=== PATIENT | male | born 1965 | race Caucasian/White ===

== ENCOUNTER 2017-07-15 10:41 | Outpatient (CLI) | payer OTHER | END 2017-07-15 10:42 | disposition home or self-care (01) | LOC: DTY/OP 10:41 | PROVIDERS: ATTEND Specialist | DX: Z01.818 Encounter for other preprocedural examination (principal); E66.01 Morbid (severe) obesity due to excess calories | CPT/HCPCS: 97802 ==

== ENCOUNTER 2017-10-20 15:08 | Emergency (ER) | payer BC ==
[2017-10-20 17:05] LABS: Bilirubin Negative (Negative); Blood, Urine Large (Negative); Clarity CLOUDY (Clear); Glucose, Urine (Dipstick) Negative (Negative); Leukocyte Trace (Negative); Nitrite Negative (Negative); Protein, Urine (Dipstick) 100 mg/dL (Neg-Trace); Specific Gravity, Urine 1.018 (1.002-1.036); Urobilinogen 0.2 mg/dL (0.2-1.0)
[2017-10-20 17:07] LABS: Bacteria/HPF None Seen HPF (None Seen); Hyaline Casts/LPF 0-3 HYALINE CAST LPF (0-3 Hyaline); RBC/HPF GREATER THAN 50-TNTC HPF (0-3); Squamous Epithelial None Seen HPF (0-3)
== END 2017-10-20 21:36 | disposition home or self-care (01) ==
LOC: ERS 15:08
DX: R33.9 Retention of urine, unspecified (principal); R31.9 Hematuria, unspecified; R10.30 Lower abdominal pain, unspecified; E11.9 Type 2 diabetes mellitus without complications; E78.5 Hyperlipidemia, unspecified; I10 Essential (primary) hypertension; F17.220 Nicotine dependence, chewing tobacco, uncomplicated
CPT/HCPCS: 81003; 81015; 99283

== ENCOUNTER 2017-10-21 08:13 | Outpatient (CLI) | payer BC ==
--- NOTE | 2017-10-21 09:20 | CT ---
CT ABDOMEN AND PELVIS WITH AND WITHOUT IV CONTRAST: Date: 10/21/17 HISTORY: Gross hematuria. FINDINGS: Comparison made with exam of 07/15/11. There is evidence of old granulomatous disease in the lower thorax. The liver demonstrates mildly dec reased attenuation compared to the spleen consistent with mild fatty infiltration. No hepatic mass or abnormal biliary ductal dilatation is seen. The spleen, pancreas, and adrenal glands are normal. No calcified gallstones are noted. No free air, free fluid, or lymphadenopathy is seen in the abdomen or pelvis. A normal appearing appendix is noted. There are vascular calcifications without evidence of aneurysmal dilatation of the abdominal aorta. There are mild degenerative changes in the spine. The t wo nonobstructing calculi in the left kidney are again seen. No calculi seen in the right kidney, ure ter, or urinary bladder. No hydroureteronephrosis is noted on either side. There is marked enlargemen t of the prostate gland. There is thickening of the wall of the urinary bladder and free air in the u rinary bladder. There are few sigmoid diverticula. IMPRESSION: 1. Nonobstructing left renal calculi. 2. No evidence of renal mass. 3. Mild hepatic steatosis. 4. Marked prostatic enlargement. 5. Bladder wall thickening with intraluminal free air (correlate for recent instrumentation). 6. Mild sigmoid diverticulosis. 7. Urologic consultation is recommended. POS: ADOLFO
[2017-10-21] MEDS ORDERED: Iopamidol 370 76% 100 ML VIAL ONE (13:14)
== END 2017-10-21 08:14 | disposition home or self-care (01) ==
LOC: CT 08:13
PROVIDERS: ATTEND Family Medicine
DX: R31.0 Gross hematuria (principal); N20.0 Calculus of kidney; K76.0 Fatty (change of) liver, not elsewhere classified; N40.0 Benign prostatic hyperplasia without lower urinary tract symptoms; K57.30 Diverticulosis of large intestine without perforation or abscess without bleeding
CPT/HCPCS: 74178

== ENCOUNTER 2017-11-02 10:34 | Outpatient (CLI) | payer BC ==
--- NOTE | 2017-11-02 12:18 | RAD ---
KUB: History: Renal stones. FINDINGS: There are two calculi in the left kidney measuring 3 and 5 mm respectively. No calculi are seen in th e projection of the right kidney, ureters, or urinary bladder. IMPRESSION: Left renal calculi. POS: ADOLFO
== END 2017-11-02 10:35 | disposition home or self-care (01) ==
LOC: RAD 10:34
PROVIDERS: ATTEND Urology
DX: N20.0 Calculus of kidney (principal)
CPT/HCPCS: 74018

== ENCOUNTER 2017-12-02 11:27 | Outpatient (CLI) | payer BC | END 2017-12-02 11:28 | disposition home or self-care (01) | LOC: LABBT 11:27 | PROVIDERS: ATTEND Specialist | DX: Z01.818 Encounter for other preprocedural examination (principal); E66.01 Morbid (severe) obesity due to excess calories | CPT/HCPCS: 93005; 93010 ==

== ENCOUNTER 2017-12-08 06:00 | Inpatient (IN) | payer BC ==
[2017-12-02 11:49] VITALS: BMI 41.8
[2017-12-08] MEDS ORDERED: Ketorolac Tromethamine 30 MG/ML VIAL ONE (06:14)
[2017-12-08] MEDS ORDERED: Scopolamine 1.5 mg/72 hour Patch ONE (06:14)
[2017-12-08] MEDS ORDERED: Heparin 5,000 UNITS/ML VIAL ONE (06:14)
[2017-12-08] MEDS ORDERED: cefOXitin 2 GM, Syringe 1 ML in Sterile Water 10 ML SLOW IVP SCH (06:30)
[2017-12-08] MEDS ORDERED: Fentanyl 250 MCG/5 ML VIAL ONE ×2 (07:18→10:12)
[2017-12-08] MEDS ORDERED: HYDROmorphone 0.5 MG/0.5 ML SYRINGE ONE (07:18)
[2017-12-08] MEDS ORDERED: Ondansetron HCl/PF 4 MG/2 ML Vial ONE ×2 (07:19→07:51)
[2017-12-08] MEDS ORDERED: Bupivacaine/Epinephrine 0.25% 30 ML VIAL ONE (07:20)
[2017-12-08] MEDS ORDERED: Dexamethasone 20 MG/5 ML VIAL ONE (07:51)
[2017-12-08] MEDS ORDERED: Glycopyrrolate 0.2 MG/ML 5 ML SYRINGE ONE (07:51)
[2017-12-08] MEDS ORDERED: Lidocaine 1% PF 5 ML VIAL ONE (07:51)
[2017-12-08] MEDS ORDERED: PROPOFOL 200 MG/20 ML VIAL ONE (07:51)
[2017-12-08] MEDS ORDERED: ePHEDrine/0.9% NaCl/PF SYRINGE 50 mg/10 ml ONE (07:51)
[2017-12-08] MEDS ORDERED: Meperidine HCl/PF 25 MG/ML VIAL SLOW IVP PRN (08:28)
[2017-12-08] MEDS ORDERED: Ondansetron HCl/PF 4 MG/2 ML Vial IVP PRN ×2 (08:28→11:09)
[2017-12-08] MEDS ORDERED: Promethazine HCl 25 MG/ML VIAL IM PRN ×2 (08:28→11:09)
[2017-12-08] MEDS ORDERED: Promethazine HCl 25 MG/ML VIAL SLOW IVP PRN (08:28)
[2017-12-08] MEDS ORDERED: HYDROmorphone 2 MG/ML VIAL SLOW IVP PRN (08:28)
[2017-12-08] MEDS ORDERED: Dextrose 5% in Water 1,000 ML IV PRN (11:09)
[2017-12-08] MEDS ORDERED: Morphine 4 MG/ML VIAL SLOW IVP PRN (11:09)
[2017-12-08] MEDS ORDERED: Dextrose 50% Abboject 50 ML SYRINGE SLOW IVP PRN (11:09)
[2017-12-08] MEDS ORDERED: diphenhydrAMINE 50 MG/ML VIAL IVP PRN (11:09)
[2017-12-08] MEDS ORDERED: Insulin Regular 300 UNITS/3 ML VIAL SC PRN (11:09)
[2017-12-08] MEDS ORDERED: hydrALAZINE 20 MG/ML VIAL SLOW IVP PRN (11:09)
[2017-12-08] MEDS: Ketorolac Tromethamine 30 MG/ML VIAL IVP SCH ×2 (12:04→18:19)
[2017-12-08] MEDS: 1/2 NS w/KCL 20 mEq 1,000 ML IV SCH ×2 (12:04→19:49)
[2017-12-08] MEDS: Morphine 4 MG/ML VIAL SLOW IVP PRN ×4 (12:05→19:48)
[2017-12-08] MEDS ORDERED: Enoxaparin Sodium 40 MG/0.4 ML SYRINGE SC SCH (21:00)
[2017-12-09] MEDS: Ketorolac Tromethamine 30 MG/ML VIAL IVP SCH ×2 (00:23→05:14)
[2017-12-09] MEDS: 1/2 NS w/KCL 20 mEq 1,000 ML IV SCH (04:05)
[2017-12-09 04:25] LABS: #Basophils 0.1 thou/uL (0.0-0.2); #Lymphocytes 2.1 thou/uL (1.20-3.40); #Neutrophils 11.7 thou/uL (1.40-6.50); %Basophils 0.5 % (0.0-1.0); %Eosinophils 0.1 % (0.0-10.0); %Monocytes 6.9 % (0.0-10.0); %Neutrophils 78.5 % (42.0-75.0); Hemoglobin 12.4 g/dL (14.0-18.0); Mean Corpuscular HGB CONC 33.8 g/dL (32.0-36.0); Mean Corpuscular Hemoglobin 31.9 pg (27.0-31.0); Mean Corpuscular Volume 94.6 fl (80.0-94.0); Mean Platelet Volume 10.5 fL (7.4-10.4); Platelet Count 167 thou/uL (130-400); RBC Distribution Width 12.1 % (11.5-14.5); Red Blood Cell (RBC) Count 3.88 mill/uL (4.70-6.10); White Blood Cell (WBC) Count 14.9 thou/uL (4.8-10.8)
[2017-12-09 04:35] LABS: Anion Gap 11 mmol/L (10-20); BUN (Urea Nitrogen) 11 mg/dL (8.9-20.6); Calc. Creatinine Clearance 194 mL/min (70-130); Calcium 8.8 mg/dL (7.8-10.44); Carbon Dioxide 25 mmol/L (22-29); Chloride 108 mmol/L (98-107); Estimated GFR-MDRD Greater than 90; Glucose 96 mg/dL (70-105); Potassium 4.1 mmol/L (3.5-5.1); Sodium 140 mmol/L (136-145)
[2017-12-09] MEDS: Hydrocodone-Acetamin 15 ML UDCUP PO PRN ×2 (05:13→11:01)
[2017-12-09 07:54] VITALS: BP 113/65; TEMP 98.1
[2017-12-09] MEDS ORDERED: Pantoprazole 40 MG VIAL IVP SCH (09:00)
--- NOTE | 2017-12-12 10:30 | OP ---
DATE OF PROCEDURE: 12/08/2017 PREOPERATIVE DIAGNOSIS: Morbid obesity with multiple comorbidities. POSTOPERATIVE DIAGNOSIS: Morbid obesity with multiple comorbidities. PROCEDURE PERFORMED: Laparoscopic vertical sleeve gastrectomy using the ViSiGi device. SURGEON: Dr. Jose Cardoso. ANESTHESIA: General endotracheal. INDICATIONS: The patient is a 52-year-old morbidly obese white male. He has undergone preoperative evaluation and education and presents at this time for a laparoscopic sleeve gastrectomy. DESCRIPTION OF OPERATION: Informed consent was obtained. The patient was taken to the operating dee dee m where general endotracheal anesthesia obtained with the patient in supine position. Abdomen was pr epped with ChloraPrep and draped in sterile fashion. Local anesthetic was infiltrated and 5 mm supra umbilical incision was created through which a Veress needle was passed into the peritoneal cavity an d pneumoperitoneum was established using cardio dioxide up to a pressure of 15 mmHg. A 5 mm trocar p ort was passed through this same incision. Laparoscopic camera was passed through this port. Under direct vision, I placed 4 additional ports. This included two 5 mm subcostal ports bilaterally, a ri ght paramedian 12 mm port, a left paramedian 15 mm port. A 5 mm epigastric incision was created through which a Jocy retractor was passed into the abdomi nal cavity and used to retract the left lobe of the liver. Inspection within the abdomen revealed the liver had no apparent fatty liver change. The ViSiGi farheen ce was passed into the stomach and used to decompress it. Identified the pylorus and beginning 4 cm proximal to the pylorus, I dissected all omental and vascular tissue away from the greater curvature of the stomach in an ascending fashion using the LigaSure device. Short gastric vessels were divided and all posterior adhesions were mobilized as well. The left emma of the diaphragm was visualized. There was no evidence of hiatal hernia. The ViSiGi device was advanced down to the level of the pylorus and placed to suction. This nicely d efined the remainder of the stomach. The gastrectomy was then performed using a series of fires of t he Guy stapler using a green load followed by a gold load and a series of blue loads. The divisi on was carried up to the angle of [facility]. Great care was taken to avoid narrowing the incisura or the g astroesophageal junction. When the resection was complete, the staple line on the sleeve was inspect ed. There were few areas of minor oozing and these were quickly controlled with Hemoclips. The gas was insufflated through the ViSiGi device while irrigating the staple line. There was no evidence of any air leak. There was no evidence of any stenosis. The suction was taken off of the ViSiGi and i t was removed. The resected stomach was removed through the 15 mm port site and the fascia was closed with 0 Vicryl suture using a GraNee needle. All ports and instruments removed under direct vision. Pneumoperitone um was carefully evacuated. Quarter percent Marcaine with epinephrine was infiltrated in each port s ite. Skin edges approximate with 4-0 Monocryl subcuticular suture. Dermabond was placed externally. There were no complications. The patient tolerated the procedure well and was taken to the recover y room in stable condition.
== END 2017-12-09 11:54 | disposition home or self-care (01) | DRG 621 ==
LOC: SDC 06:00 → SURG A 10:29
PROVIDERS: ADMIT Specialist; ATTEND Specialist
PROC: 0DB64Z3 Excision of Stomach, Percutaneous Endoscopic Approach, Vertical (ICD-10-PCS; principal; 2017-12-08)
DX: E66.01 Morbid (severe) obesity due to excess calories (principal); E11.9 Type 2 diabetes mellitus without complications; E78.5 Hyperlipidemia, unspecified; I10 Essential (primary) hypertension; Z79.84 Long term (current) use of oral hypoglycemic drugs; Z68.41 Body mass index [BMI] 40.0-44.9, adult
CPT/HCPCS: 36415; 36416; 80048; 85025; 88307; 88312; 94760; A4216; C9113; J0131; J0694; J1100; J1170; J1644; J1650; J1885; J2001; J2270; J2405; J2704; J3010

== ENCOUNTER 2018-04-17 16:50 | Outpatient (CLI) | payer BC ==
[2018-04-17 17:36] LABS: Hemoglobin 14.3 g/dL (14.0-18.0); Mean Corpuscular HGB CONC 34.7 g/dL (32.0-36.0); Mean Corpuscular Hemoglobin 32.1 pg (27.0-31.0); Mean Corpuscular Volume 92.8 fL (78.0-98.0); Mean Platelet Volume 9.6 fL (7.4-10.4); Platelet Count 208 thou/uL (130-400); RBC Distribution Width 12.3 % (11.5-14.5); Red Blood Cell (RBC) Count 4.45 mill/uL (4.70-6.10); White Blood Cell (WBC) Count 11.5 thou/uL (4.8-10.8)
[2018-04-17 18:00] LABS: Anion Gap 11 mmol/L (10-20); BUN (Urea Nitrogen) 18 mg/dL (8.9-20.6); Calc. Creatinine Clearance 0 mL/min (70-130); Calcium 9.3 mg/dL (7.8-10.44); Carbon Dioxide 26 mmol/L (22-29); Chloride 107 mmol/L (98-107); Estimated GFR-MDRD Greater than 90; Glucose 83 mg/dL (70-105); Sodium 140 mmol/L (136-145)
== END 2018-04-17 16:51 | disposition home or self-care (01) ==
LOC: LABBT 16:50
PROVIDERS: ATTEND Urology
DX: Z01.818 Encounter for other preprocedural examination (principal); N20.0 Calculus of kidney; N40.0 Benign prostatic hyperplasia without lower urinary tract symptoms
CPT/HCPCS: 80048; 81001; 85027; 87086

== ENCOUNTER 2018-05-02 06:05 | Day surgery (SDC) | payer BC ==
[2018-04-17 17:00] VITALS: BMI 33.0
[2018-05-02] MEDS ORDERED: B & O ONE (06:46)
[2018-05-02] MEDS ORDERED: Furosemide 20 MG/2 ML VIAL ONE (06:47)
[2018-05-02] MEDS ORDERED: Levofloxacin 500 mg/D5W 100 ml Premix Bag ONE (06:59)
[2018-05-02] MEDS ORDERED: Dexamethasone 4 mg/ml Vial ONE (06:59)
--- NOTE | 2018-05-02 08:21 | RAD ---
ONE VIEW ABDOMEN: COMPARISON: 11/02/17. HISTORY: Preoperative exam. Left renal calculi. FINDINGS: Nonspecific bowel gas pattern. Two stable calcifications project in the left renal pelvis measuring approximately 3-4 mm. There is a questionable surgical clip in the left upper quadrant. No pneumope ritoneum. IMPRESSION: Two stable calculi projecting over the left renal pelvis. POS: ABBY
[2018-05-02] MEDS ORDERED: Fentanyl 100 MCG/2 ML VIAL ONE (10:20)
[2018-05-02] MEDS ORDERED: Midazolam HCl 2 mg/2 ml Vial ONE (10:20)
[2018-05-02] MEDS ORDERED: Ondansetron HCl/PF 4 MG/2 ML Vial ONE (15:03)
[2018-05-02] MEDS ORDERED: Dexamethasone 20 MG/5 ML VIAL ONE (15:03)
[2018-05-02] MEDS ORDERED: diphenhydrAMINE 50 MG/ML VIAL ONE (15:03)
[2018-05-02] MEDS ORDERED: PROPOFOL 200 MG/20 ML VIAL ONE (15:03)
[2018-05-02] MEDS ORDERED: Glycopyrrolate 0.2 MG/ML 5 ML SYRINGE ONE (15:03)
[2018-05-02] MEDS ORDERED: Lidocaine 1% PF 5 ML VIAL ONE (15:03)
[2018-05-02] MEDS ORDERED: Metoclopramide HCl 10 MG/2 ML VIAL ONE (15:03)
[2018-05-02] MEDS ORDERED: HYDROcodone/Acetaminophen 5/325 mg Tablet ONE (15:17)
[2018-05-02] MEDS ORDERED: Morphine 4 MG/ML VIAL ONE (15:48)
[2018-05-02] MEDS ORDERED: Lidocaine 1% (PF) 30 ML VIAL ONE (16:18)
[2018-05-02] MEDS ORDERED: Lidocaine 2% Jelly 5 ML TUBE TOP PRN (16:25)
[2018-05-02] MEDS ORDERED: Lorazepam 0.5 MG TAB PO PRN (16:26)
--- NOTE | 2018-05-02 16:50 | OP ---
DATE OF PROCEDURE: 05/02/2018 PREOPERATIVE DIAGNOSES: Benign prostatic hypertrophy and left renal stones. POSTOPERATIVE DIAGNOSES: Benign prostatic hypertrophy and left renal stones. PROCEDURE: GreenLight laser vaporization with enucleation of the middle lobe as well as left ESWL. Total joules 368,000. ESTIMATED BLOOD LOSS: Minimal. SPECIMENS: Prostate. DRAINS: Remaining 20-Syriac 2-way. COMPLICATIONS: None. FINDINGS: Adequate fragmentation of 2 left renal stones that were adjacent to each other as well as adequate opening up of the prostatic urethra after enucleating a huge intravesical middle lobe. INDICATIONS: The patient is a 52-year-old male, who was followed in the office for BPH and stones and noted to have 2 left adjacent mid renal stones and a significant obstruction with poor urine flow despite meds. So, he is set up for a joint procedure including GreenLight laser vaporization of prostate and ESWL. Normally, I would proceed with the GreenLight laser procedure first; however, the patient's case was delayed, because he had had some chewing tobacco 2 hours prior to anticipated start time and there was also a delay in getting the technology for the GreenLight to be ready, so we proceeded with ESWL first. The patient was brought into the room by Anesthesia, laid on the table in supine position. After receiving general anesthetic with endotracheal tube, he was positioned supine and such that the lithotripter could identify the stones in multiple planes and a total of 2500 shocks and maximum power level of 4/6 at a maximum rate of 70-90 were delivered. The medial stone did fragment a little bit and go a little bit more medial, so this was followed, but otherwise, it remained relatively in same position throughout the shocks. The patient tolerated the procedure well and was then transferred to the cystoscopy suite. The patient was then placed in lithotomy and prepped and draped in sterile fashion. Using a 22.5-Syriac cystoscope and a 30-degree lens, the urethra was traversed and the bladder inspected. Ureteral orifices were not noted at first given the very large obstructing intravesical middle lobe. So, I just started enucleating that in small enough pieces that could be extracted. It did require a grasper for some of these pieces to be removed at the end of the case , as they did not all naturally rinse out. The majority of the time carefully and meticulously taking down the middle lobe in enucleation fashion--this was about 2 hours of the case. After this was about 2[address], then I was able to adequately identify the ureteral orifices, which were far enough out of the resection area and preserved throughout the case. When the middle lobe was finally taken down the lateral lobes, although long, were not very obstructing and I opted to leave these approximately 1-2 cm above the veru, but took the middle lobe down to that area. Power level of 180 was used for the mid gland. The power level of 80 was used for the bladder neck. The scope was removed, and an okay stream was noted still when there were some chips that were obstructing. So, scope was put back in and bladder decompressed. Hemostasis assured. All chips were ensured to be out. Then, scope was removed a final time and a 20-Syriac catheter was placed to gravity and secured. The patient tolerated the procedure well and was then awakened and transferred to PACU in stable condition. JUDI
== END 2018-05-02 17:33 | disposition home or self-care (01) ==
LOC: SDC 06:05
PROVIDERS: ATTEND Urology
PROC: 0V507ZZ Destruction of Prostate, Via Natural or Artificial Opening (ICD-10-PCS; principal; 2018-05-02)
PROC: 0TF4XZZ Fragmentation in Left Kidney Pelvis, External Approach (ICD-10-PCS; principal; 2018-05-02)
DX: N20.0 Calculus of kidney (principal); N40.1 Benign prostatic hyperplasia with lower urinary tract symptoms; R35.1 Nocturia; R33.8 Other retention of urine; R39.12 Poor urinary stream; I10 Essential (primary) hypertension; E78.5 Hyperlipidemia, unspecified; E11.9 Type 2 diabetes mellitus without complications; E66.9 Obesity, unspecified; Z68.32 Body mass index [BMI] 32.0-32.9, adult; Z79.82 Long term (current) use of aspirin; Z79.84 Long term (current) use of oral hypoglycemic drugs; Z79.899 Other long term (current) drug therapy
CPT/HCPCS: 74018; 88305; 96374; J1100; J1200; J1940; J1956; J2001; J2250; J2270; J2405; J2704; J2765; J3010

== ENCOUNTER 2018-05-15 10:55 | Outpatient (CLI) | payer BC ==
--- NOTE | 2018-05-15 12:48 | RAD ---
ABDOMEN ONE VIEW: History: Renal stones. Comparison: 05-02-18 FINDINGS: Previously described calculi projecting over the left renal shadow are not as well defined on today's examination. There are phleboliths in the pelvis. Multiple surgical clips in the upper abdomen. IMPRESSION: Nonvisualization of the previously described calculi. POS: ADOLFO
== END 2018-05-15 10:56 | disposition home or self-care (01) ==
LOC: RAD 10:55
PROVIDERS: ATTEND Urology
DX: N20.0 Calculus of kidney (principal)
CPT/HCPCS: 74018

== ENCOUNTER 2018-05-30 10:56 | Outpatient (CLI) | payer BC ==
--- NOTE | 2018-05-30 12:17 | RAD ---
ABDOMEN ONE VIEW: History: Stones. Follow up. Comparison: 05-15-18, 05-02-18 FINDINGS/IMPRESSION: Bowel gas pattern is nonspecific. Renal outlines are obscured. The calcifications over the left kidne y from the 05-02-18 study are not reliably demonstrated. Phleboliths project over the pelvis. Findings are stable. POS: ABBY
== END 2018-05-30 10:57 | disposition home or self-care (01) ==
LOC: RAD 10:56
PROVIDERS: ATTEND Urology
DX: N20.0 Calculus of kidney (principal); N28.89 Other specified disorders of kidney and ureter; I87.8 Other specified disorders of veins
CPT/HCPCS: 74018

== ENCOUNTER 2021-02-12 11:55 | Outpatient (CLI) | payer BC | END 2021-02-12 11:56 | disposition home or self-care (01) | LOC: CT 11:55 | PROVIDERS: ATTEND Family Medicine | DX: R31.0 Gross hematuria (principal); N32.89 Other specified disorders of bladder; N20.0 Calculus of kidney; Z98.84 Bariatric surgery status | CPT/HCPCS: 74176 ==

== ENCOUNTER 2021-02-12 15:00 | Inpatient (IN) | payer BC ==
[2021-02-12] MEDS ORDERED: HYDROcodone/Acetaminophen 7.5/325 mg Tablet PO PRN ×2 (15:51)
[2021-02-12] MEDS ORDERED: Bisacodyl 10 MG SUPP PR PRN (15:51)
[2021-02-12] MEDS ORDERED: Morphine 4 MG/ML VIAL SLOW IVP PRN (15:51)
[2021-02-12] MEDS ORDERED: Zolpidem Tartrate 5 MG TAB PO PRN (15:51)
[2021-02-12] MEDS ORDERED: hydrALAZINE 20 MG/ML VIAL SLOW IVP PRN ×2 (15:51)
[2021-02-12] MEDS ORDERED: Oxybutynin 5 MG TAB PO PRN (15:51)
[2021-02-12] MEDS ORDERED: Phenazopyridine HCl 100 MG TAB PO PRN (15:51)
[2021-02-12] MEDS ORDERED: Morphine 2 MG/ML VIAL SLOW IVP PRN (15:51)
[2021-02-12] MEDS ORDERED: Acetaminophen 500 MG TAB PO PRN (15:51)
[2021-02-12] MEDS ORDERED: diphenhydrAMINE 25 MG CAP PO PRN (15:51)
[2021-02-12] MEDS ORDERED: Ondansetron PF 4 MG/2 ML Vial IVP PRN (15:51)
[2021-02-12] MEDS ORDERED: Mag-Al 1200 mg/1200 mg/30 ML UDCUP PO PRN (15:51)
[2021-02-12] MEDS ORDERED: Dextrose 5% in Water 1,000 ML IV PRN (15:58)
[2021-02-12] MEDS ORDERED: Dextrose 50% Abboject 50 ML SYRINGE SLOW IVP PRN (15:58)
[2021-02-12] MEDS ORDERED: Sodium Chloride 0.9% 1,000 ML IV SCH (16:00)
[2021-02-12 16:32] LABS: #Basophils 0.1 thou/uL (0.0-0.2); #Eosinphils 0.3 thou/uL (0.0-0.7); #Lymphocytes 3.1 thou/uL (1.20-3.40); #Monocytes 1.1 thou/uL (0.11-0.59); #Neutrophils 10.4 thou/uL (1.40-6.50); %Basophils 0.7 % (0.0-1.0); %Eosinophils 1.9 % (0.0-10.0); %Lymphocytes 20.6 % (21.0-51.0); %Monocytes 7.2 % (0.0-10.0); %Neutrophils 69.6 % (42.0-75.0); Hemoglobin 14.6 g/dL (14.0-18.0); Mean Corpuscular Hemoglobin 33.1 pg (27.0-31.0); Mean Corpuscular Volume 94.6 fL (78.0-98.0); Mean Platelet Volume 9.1 fL (7.4-10.4); Platelet Count 212 thou/uL (130-400); RBC Distribution Width 11.4 % (11.5-14.5); Red Blood Cell (RBC) Count 4.41 mill/uL (4.70-6.10); White Blood Cell (WBC) Count 14.9 thou/uL (4.8-10.8)
[2021-02-12 16:41] LABS: Prothrombin Time 13.6 sec (12.0-14.7)
[2021-02-12 16:42] LABS: PTT 31.5 sec (22.9-36.1)
[2021-02-12 16:52] LABS: Anion Gap 13 mmol/L (10-20); BUN (Urea Nitrogen) 22 mg/dL (8.4-25.7); Calc. Creatinine Clearance 0 mL/min (70-130); Calcium 9.3 mg/dL (7.8-10.44); Carbon Dioxide 23 mmol/L (22-29); Chloride 108 mmol/L (98-107); Glucose 101 mg/dL (70-105); Potassium 3.7 mmol/L (3.5-5.1); Sodium 140 mmol/L (136-145)
[2021-02-12 17:33] VITALS: BMI 31.3
[2021-02-12] MEDS: D5 0.9% NS w/ 20 mEq KCl 1,000 ML IV SCH (18:06)
[2021-02-12] MEDS: cefTRIAXone\\ROCEPHIN 1 GM in Sodium Chloride 0.9% 100 ML IVPB SCH (18:12)
[2021-02-12] MEDS: metFORMIN 500 MG TAB PO SCH (18:13)
[2021-02-12] MEDS: Tamsulosin HCl 0.4 MG CAP PO SCH (20:13)
[2021-02-12] MEDS: Docusate 100 MG CAP PO SCH (20:13)
[2021-02-12] MEDS: Atorvastatin Calcium 20 MG TAB PO SCH (20:13)
[2021-02-12] MEDS: Famotidine/PF 20 mg/2ml Vial SLOW IVP SCH (20:13)
[2021-02-12] MEDS ORDERED: Finasteride 5 MG TAB PO SCH (21:00)
[2021-02-13] MEDS: D5 0.9% NS w/ 20 mEq KCl 1,000 ML IV SCH ×3 (00:04→14:44)
[2021-02-13 01:00] LABS: SARS-CoV-2 PCR by NAA Not Detected (NotDetected)
[2021-02-13 05:44] LABS: #Basophils 0.1 thou/uL (0.0-0.2); #Eosinphils 0.2 thou/uL (0.0-0.7); #Lymphocytes 3.3 thou/uL (1.20-3.40); #Monocytes 1.2 thou/uL (0.11-0.59); #Neutrophils 9.3 thou/uL (1.40-6.50); %Basophils 0.6 % (0.0-1.0); %Eosinophils 1.4 % (0.0-10.0); %Lymphocytes 23.8 % (21.0-51.0); %Monocytes 8.2 % (0.0-10.0); Hemoglobin 12.6 g/dL (14.0-18.0); Mean Corpuscular HGB CONC 33.6 g/dL (32.0-36.0); Mean Corpuscular Volume 95.5 fL (78.0-98.0); Mean Platelet Volume 8.9 fL (7.4-10.4); Platelet Count 194 thou/uL (130-400); RBC Distribution Width 11.6 % (11.5-14.5); Red Blood Cell (RBC) Count 3.95 mill/uL (4.70-6.10)
[2021-02-13 06:03] LABS: Anion Gap 7 mmol/L (10-20); BUN (Urea Nitrogen) 13 mg/dL (8.4-25.7); Calc. Creatinine Clearance 129 mL/min (70-130); Calcium 8.5 mg/dL (7.8-10.44); Carbon Dioxide 28 mmol/L (22-29); Chloride 108 mmol/L (98-107); Glucose 119 mg/dL (70-105); Sodium 139 mmol/L (136-145)
[2021-02-13] MEDS ORDERED: Tamsulosin HCl 0.4 MG CAP PO SCH (09:00)
[2021-02-13] MEDS ORDERED: Fentanyl 100 MCG/2 ML VIAL ONE (11:17)
[2021-02-13] MEDS ORDERED: PROPOFOL 200 MG/20 ML VIAL ONE (11:32)
[2021-02-13] MEDS ORDERED: Lidocaine 1% PF 5 ML VIAL ONE (11:32)
[2021-02-13] MEDS ORDERED: Ondansetron PF 4 MG/2 ML Vial ONE (11:32)
[2021-02-13] MEDS ORDERED: PHENYLEPHRINE-NS 100 MCG/ML 10 ML SYRINGE ONE (11:32)
[2021-02-13] MEDS ORDERED: ePHEDrine Sulfate 50 MG/10 ML VIAL ONE (11:32)
[2021-02-13] MEDS ORDERED: Dexamethasone 20 MG/5 ML VIAL ONE (11:32)
[2021-02-13] MEDS ORDERED: B & O ONE (12:22)
[2021-02-13] MEDS ORDERED: Meperidine HCl/PF 25 MG/ML VIAL ONE (13:44)
[2021-02-13] MEDS ORDERED: PACU-Morphine 4MG/ML VIAL SLOW IVP PRN (13:45)
[2021-02-13] MEDS ORDERED: Meperidine HCl/PF 25 MG/ML VIAL SLOW IVP PRN (13:45)
[2021-02-13] MEDS ORDERED: Ondansetron HCl/PF 4 MG/2 ML Vial IVP PRN (13:45)
[2021-02-13] MEDS ORDERED: traMADol HCl 50 MG TAB PO PRN (13:53)
[2021-02-13] MEDS: Docusate 100 MG CAP PO SCH ×2 (15:11→20:45)
[2021-02-13] MEDS: Famotidine/PF 20 mg/2ml Vial SLOW IVP SCH ×2 (15:11→20:45)
[2021-02-13] MEDS: cefTRIAXone\\ROCEPHIN 1 GM in Sodium Chloride 0.9% 100 ML IVPB SCH (16:56)
[2021-02-13] MEDS: metFORMIN 500 MG TAB PO SCH (16:59)
[2021-02-13] MEDS: Tamsulosin HCl 0.4 MG CAP PO SCH (18:15)
[2021-02-13] MEDS: Atorvastatin Calcium 20 MG TAB PO SCH (20:45)
[2021-02-14] MEDS: D5 0.9% NS w/ 20 mEq KCl 1,000 ML IV SCH (03:51)
[2021-02-14 07:17] VITALS: TEMP 97.9
[2021-02-14] MEDS: Famotidine/PF 20 mg/2ml Vial SLOW IVP SCH (08:52)
[2021-02-14] MEDS: Docusate 100 MG CAP PO SCH (08:52)
[2021-02-14 11:55] VITALS: BP 143/90
== END 2021-02-14 12:15 | disposition home or self-care (01) | DRG 667 ==
LOC: SURG A 15:42
PROVIDERS: ADMIT Urology; ATTEND Urology
PROC: 0V508ZZ Destruction of Prostate, Via Natural or Artificial Opening Endoscopic (ICD-10-PCS; principal; 2021-02-13)
PROC: 0T9D8ZZ Drainage of Urethra, Via Natural or Artificial Opening Endoscopic (ICD-10-PCS; 2021-02-13)
PROC: 0T9B80Z Drainage of Bladder with Drainage Device, Via Natural or Artificial Opening Endoscopic (ICD-10-PCS; 2021-02-13)
DX: N32.89 Other specified disorders of bladder (principal); N40.1 Benign prostatic hyperplasia with lower urinary tract symptoms; R31.0 Gross hematuria; R33.8 Other retention of urine; E78.5 Hyperlipidemia, unspecified; Z20.822 Contact with and (suspected) exposure to COVID-19; E11.9 Type 2 diabetes mellitus without complications; I10 Essential (primary) hypertension; E66.01 Morbid (severe) obesity due to excess calories; Z98.890 Other specified postprocedural states; Z87.442 Personal history of urinary calculi; Z68.31 Body mass index [BMI] 31.0-31.9, adult; Z79.899 Other long term (current) drug therapy; Z79.82 Long term (current) use of aspirin
CPT/HCPCS: 36415; 36416; 71045; 74176; 80048; 80053; 85025; 85610; 85730; 86850; 86900; 86901; 87086; 88305; 93005; 93010; G0103; J0696; J1100; J2175; J2405; J2704; J3010; J3480; J3490; S0028; U0003; U0005

== ENCOUNTER 2022-09-14 14:36 | Emergency (ER) | payer BC ==
[2022-09-14] MEDS ORDERED: LORazepam 2 MG/ML SYR.(CARPUJECT) ONE ×2 (15:32→16:22)
[2022-09-14] MEDS ORDERED: levETIRAcetam 500 MG/5 ML VIAL ONE (15:32)
[2022-09-14 16:11] LABS: #Lymphocytes 0.9 thou/uL (1.20-3.40); #Monocytes 0.5 thou/uL (0.11-0.59); #Neutrophils 15.2 thou/uL (1.40-6.50); %Basophils 0.2 % (0.0-1.0); %Eosinophils 0.2 % (0.0-10.0); %Lymphocytes 5.3 % (21.0-51.0); %Monocytes 3.2 % (0.0-10.0); %Neutrophils 91.1 % (42.0-75.0); Hemoglobin 14.7 g/dL (14.0-18.0); Mean Corpuscular HGB CONC 34.7 g/dL (32.0-36.0); Mean Corpuscular Volume 95.1 fl (78.0-98.0); Mean Platelet Volume 10.2 fL (7.4-10.4); Platelet Count 181 10x3/uL (130-400); RBC Distribution Width 11.6 % (11.5-14.5); Red Blood Cell (RBC) Count 4.45 mill/uL (4.70-6.10); White Blood Cell (WBC) Count 16.7 10x3/uL (4.8-10.8)
[2022-09-14 16:28] LABS: Acetaminophen Less than 10.0 mcg/mL (10.0-30.0); Alcohol Less than 10 mg/dL (Less than 10); Salicylate Less than 8.0 mg/dL (15.0-30.0)
[2022-09-14 16:38] LABS: Bilirubin Negative (Negative); Blood, Urine Negative (Negative); Clarity Clear (Clear); Glucose, Urine (Dipstick) Normal (Negative); Ketone, Urine 10 mg/dL (Negative); Leukocyte Negative Leu/uL (Negative); Nitrite Negative (Negative); Protein, Urine (Dipstick) 20 mg/dL (Neg-Trace); Specific Gravity, Urine 1.021 (1.002-1.036); Urobilinogen Normal mg/dL (Less than 2); pH, Urine 5.5 (5.0-9.0)
[2022-09-14 16:41] LABS: ALT (SGPT) 22 U/L (8-55); AST (SGOT) 22 U/L (5-34); Albumin 4.3 g/dL (3.5-5.0); Alkaline Phosphatase 76 U/L (40-110); Anion Gap 15 mmol/L (10-20); BUN (Urea Nitrogen) 23 mg/dL (8.4-25.7); Bilirubin, Total 0.4 mg/dL (0.2-1.2); Calc. Creatinine Clearance 0 mL/min (70-130); Calcium 9.3 mg/dL (7.8-10.44); Carbon Dioxide 20 mmol/L (22-29); Chloride 106 mmol/L (98-107); Estimated GFR 103; Globulin 2.5 g/dL (2.4-3.5); Glucose 116 mg/dL (70-105); Lipase 39 U/L (8-78); Magnesium 2.3 mg/dL (1.6-2.6); Potassium 3.6 mmol/L (3.5-5.1); Protein, Total 6.8 g/dL (6.0-8.3); Sodium 137 mmol/L (136-145)
[2022-09-14 16:47] LABS: Amphetamine Not Detected (NotDetected); Barbiturates Screen Not Detected (NotDetected); Benzodiazepine Screen Not Detected (NotDetected); Cocaine Metabolite Screen Not Detected (NotDetected); Methadone Not Detected (NotDetected); Methamphetamine Not Detected (NotDetected); Opiate Screen Not Detected (NotDetected); Oxycodone Screen Not Detected (NotDetected); Phencyclidine (PCP) Not Detected (NotDetected); THC/Cannabinoid Screen Detected (NotDetected); Tricyclic Screen Not Detected (NotDetected)
== END 2022-09-14 17:45 | disposition home or self-care (01) ==
LOC: ERS 14:36
DX: R56.9 Unspecified convulsions (principal); F17.220 Nicotine dependence, chewing tobacco, uncomplicated; Z79.82 Long term (current) use of aspirin
CPT/HCPCS: 36415; 70450; 80053; 80306; 80307; 81003; 83690; 83735; 84146; 84443; 85025; 94760; 96374; 96375; 96376; J1953; J2060

== ENCOUNTER 2022-10-02 08:25 | Emergency (ER) | payer BC ==
[2022-10-02] MEDS ORDERED: LORazepam 2 MG/ML SYR.(CARPUJECT) ONE (08:57)
[2022-10-02 08:58] LABS: #Basophils 0.1 thou/uL (0.0-0.2); #Eosinphils 0.2 thou/uL (0.0-0.7); #Lymphocytes 2.3 thou/uL (1.20-3.40); #Monocytes 0.8 thou/uL (0.11-0.59); #Neutrophils 7.8 thou/uL (1.40-6.50); %Basophils 0.7 % (0.0-1.0); %Eosinophils 1.5 % (0.0-10.0); %Monocytes 6.7 % (0.0-10.0); %Neutrophils 70.1 % (42.0-75.0); Hemoglobin 16.1 g/dL (14.0-18.0); Mean Corpuscular HGB CONC 33.8 g/dL (32.0-36.0); Mean Corpuscular Hemoglobin 31.7 pg (27.0-31.0); Mean Corpuscular Volume 93.7 fl (78.0-98.0); Mean Platelet Volume 9.6 fL (7.4-10.4); Platelet Count 214 10x3/uL (130-400); RBC Distribution Width 11.7 % (11.5-14.5); Red Blood Cell (RBC) Count 5.09 mill/uL (4.70-6.10); White Blood Cell (WBC) Count 11.1 10x3/uL (4.8-10.8)
[2022-10-02 09:13] LABS: ALT (SGPT) 21 U/L (8-55); AST (SGOT) 17 U/L (5-34); Acetaminophen Less than 10.0 mcg/mL (10.0-30.0); Albumin 4.6 g/dL (3.5-5.0); Alcohol Less than 10 mg/dL (Less than 10); Alkaline Phosphatase 85 U/L (40-110); Anion Gap 14 mmol/L (10-20); BUN (Urea Nitrogen) 21 mg/dL (8.4-25.7); Bilirubin, Total 0.5 mg/dL (0.2-1.2); Calc. Creatinine Clearance 0 mL/min (70-130); Calcium 9.8 mg/dL (7.8-10.44); Carbon Dioxide 22 mmol/L (22-29); Chloride 108 mmol/L (98-107); Estimated GFR 104; Globulin 2.9 g/dL (2.4-3.5); Glucose 118 mg/dL (70-105); Magnesium 1.9 mg/dL (1.6-2.6); Protein, Total 7.5 g/dL (6.0-8.3); Salicylate Less than 8.0 mg/dL (15.0-30.0); Sodium 140 mmol/L (136-145)
== END 2022-10-02 11:30 | disposition home or self-care (01) ==
LOC: ERS 08:25
DX: F41.1 Generalized anxiety disorder (principal); R55 Syncope and collapse; I10 Essential (primary) hypertension; F17.220 Nicotine dependence, chewing tobacco, uncomplicated; Z79.82 Long term (current) use of aspirin
CPT/HCPCS: 80053; 80307; 83735; 85025; 93005; 96374; J2060

== ENCOUNTER 2022-11-01 15:48 | Emergency (ER) | payer BC ==
[~2022-11-01 15:48] MED LIST: Iopamidol-370 76% 500 ML 1 ML ONE
[2022-11-01 17:06] LABS: #Basophils 0.1 thou/uL (0.0-0.2); #Eosinphils 0.2 thou/uL (0.0-0.7); #Lymphocytes 2.1 thou/uL (1.20-3.40); #Monocytes 0.8 thou/uL (0.11-0.59); #Neutrophils 7.6 thou/uL (1.40-6.50); %Basophils 0.7 % (0.0-1.0); %Eosinophils 1.4 % (0.0-10.0); %Lymphocytes 19.7 % (21.0-51.0); %Monocytes 7.9 % (0.0-10.0); %Neutrophils 70.4 % (42.0-75.0); Hemoglobin 13.8 g/dL (14.0-18.0); Mean Corpuscular HGB CONC 34.9 g/dL (32.0-36.0); Mean Corpuscular Volume 94.8 fl (78.0-98.0); Mean Platelet Volume 9.1 fL (7.4-10.4); Platelet Count 218 10x3/uL (130-400); RBC Distribution Width 11.8 % (11.5-14.5); Red Blood Cell (RBC) Count 4.17 mill/uL (4.70-6.10); White Blood Cell (WBC) Count 10.8 10x3/uL (4.8-10.8)
[2022-11-01 17:27] LABS: ALT (SGPT) 18 U/L (8-55); AST (SGOT) 18 U/L (5-34); Albumin 4.2 g/dL (3.5-5.0); Alkaline Phosphatase 95 U/L (40-110); Anion Gap 13 mmol/L (10-20); BUN (Urea Nitrogen) 16 mg/dL (8.4-25.7); Bilirubin, Total 0.5 mg/dL (0.2-1.2); Calc. Creatinine Clearance 0 mL/min (70-130); Calcium 8.9 mg/dL (7.8-10.44); Carbon Dioxide 22 mmol/L (22-29); Chloride 104 mmol/L (98-107); Estimated GFR 104; Globulin 2.4 g/dL (2.4-3.5); Glucose 103 mg/dL (70-105); Lipase 20 U/L (8-78); Potassium 3.6 mmol/L (3.5-5.1); Protein, Total 6.6 g/dL (6.0-8.3); Sodium 135 mmol/L (136-145)
== END 2022-11-01 18:21 | disposition home or self-care (01) ==
LOC: ERS 15:48
DX: R55 Syncope and collapse (principal); I10 Essential (primary) hypertension; Z79.899 Other long term (current) drug therapy; Z79.82 Long term (current) use of aspirin
CPT/HCPCS: 36415; 71275; 74174; 80053; 83690; 83880; 84484; 85025; 93005; Q9967

== ENCOUNTER 2022-11-17 16:42 | Observation (INO) | payer OTHER, BC ==
[2022-11-17] MEDS ORDERED: LORazepam 2 MG/ML SYR.(CARPUJECT) ONE (17:01)
[2022-11-17 17:34] LABS: #Basophils 0.1 thou/uL (0.0-0.2); #Eosinphils 0.1 thou/uL (0.0-0.7); #Lymphocytes 3.4 thou/uL (1.20-3.40); #Monocytes 1.2 thou/uL (0.11-0.59); %Basophils 0.5 % (0.0-1.0); %Eosinophils 0.9 % (0.0-10.0); %Lymphocytes 26.8 % (21.0-51.0); %Monocytes 9.6 % (0.0-10.0); %Neutrophils 62.2 % (42.0-75.0); Hemoglobin 14.3 g/dL (14.0-18.0); Mean Corpuscular HGB CONC 34.2 g/dL (32.0-36.0); Mean Corpuscular Hemoglobin 32.4 pg (27.0-31.0); Mean Corpuscular Volume 94.7 fl (78.0-98.0); Mean Platelet Volume 9.9 fL (7.4-10.4); Platelet Count 201 10x3/uL (130-400); RBC Distribution Width 11.7 % (11.5-14.5); Red Blood Cell (RBC) Count 4.42 mill/uL (4.70-6.10); White Blood Cell (WBC) Count 12.8 10x3/uL (4.8-10.8)
[2022-11-17 17:49] LABS: Acetaminophen Less than 10.0 mcg/mL (10.0-30.0); Alcohol Less than 10 mg/dL (Less than 10); CK (CPK) 361 U/L (30-200); Magnesium 2.1 mg/dL (1.6-2.6); Salicylate Less than 8.0 mg/dL (15.0-30.0)
[2022-11-17 17:51] LABS: ALT (SGPT) 26 U/L (8-55); AST (SGOT) 25 U/L (5-34); Albumin 4.3 g/dL (3.5-5.0); Alkaline Phosphatase 98 U/L (40-110); Anion Gap 23 mmol/L (10-20); BUN (Urea Nitrogen) 29 mg/dL (8.4-25.7); Bilirubin, Total 0.5 mg/dL (0.2-1.2); Calc. Creatinine Clearance 0 mL/min (70-130); Calcium 9.6 mg/dL (7.8-10.44); Carbon Dioxide 12 mmol/L (22-29); Chloride 109 mmol/L (98-107); Estimated GFR 94; Globulin 2.9 g/dL (2.4-3.5); Glucose 95 mg/dL (70-105); Potassium 3.9 mmol/L (3.5-5.1); Protein, Total 7.2 g/dL (6.0-8.3); Sodium 140 mmol/L (136-145)
[2022-11-17] MEDS ORDERED: Cefepime 2 GM VIAL ONE (18:57)
[2022-11-17 19:28] LABS: Bilirubin Negative (Negative); Blood, Urine Negative (Negative); Clarity Clear (Clear); Glucose, Urine (Dipstick) Normal (Negative); Ketone, Urine 10 mg/dL (Negative); Leukocyte Negative Leu/uL (Negative); Nitrite Negative (Negative); Protein, Urine (Dipstick) 10 mg/dL (Neg-Trace); Urobilinogen Normal mg/dL (Less than 2); pH, Urine 5.5 (5.0-9.0)
[2022-11-17 19:36] LABS: Amphetamine Not Detected (NotDetected); Barbiturates Screen Not Detected (NotDetected); Benzodiazepine Screen Detected (NotDetected); Cocaine Metabolite Screen Not Detected (NotDetected); Methadone Not Detected (NotDetected); Methamphetamine Not Detected (NotDetected); Opiate Screen Not Detected (NotDetected); Oxycodone Screen Not Detected (NotDetected); Phencyclidine (PCP) Not Detected (NotDetected); THC/Cannabinoid Screen Detected (NotDetected); Tricyclic Screen Not Detected (NotDetected)
[2022-11-17] MEDS ORDERED: Vancomycin 1.5 GRAM/300 ML BAG 1.5 GM in Premix Bag 1 BAG IVPB SCH (19:45)
[2022-11-17] MEDS ORDERED: Lorazepam 2 MG/ML VIAL SLOW IVP PRN (19:58)
[2022-11-17] MEDS ORDERED: Nitroglycerin 0.4 MG TAB (25 Tab Bottle) SL PRN (19:58)
[2022-11-17] MEDS ORDERED: Senokot S 8.6-50 MG TAB PO PRN (20:00)
[2022-11-17] MEDS ORDERED: Acetaminophen 325 MG TAB PO PRN (20:00)
[2022-11-17] MEDS ORDERED: Ondansetron ODT 4 MG TAB PO PRN (20:00)
[2022-11-17 20:33] LABS: Lactic Acid 0.6 mmol/L (0.5-2.2)
[2022-11-17 20:43] LABS: SARS-CoV-2 NAA Rapid Test Not Detected (NotDetected)
[2022-11-17] MEDS ORDERED: Atorvastatin Calcium 40 MG TAB PO SCH (21:00)
[2022-11-17] MEDS ORDERED: Famotidine 20 MG TAB ONE (21:17)
[2022-11-17] MEDS: Famotidine 20 MG TAB PO SCH (21:27)
[2022-11-17] MEDS: TICAGRELOR 90 MG TABLET PO SCH (22:21)
[2022-11-18 04:10] LABS: #Basophils 0.1 thou/uL (0.0-0.2); #Eosinphils 0.2 thou/uL (0.0-0.7); #Lymphocytes 2.3 thou/uL (1.20-3.40); #Monocytes 1.4 thou/uL (0.11-0.59); #Neutrophils 7.5 thou/uL (1.40-6.50); %Basophils 0.5 % (0.0-1.0); %Eosinophils 1.7 % (0.0-10.0); %Lymphocytes 19.7 % (21.0-51.0); %Monocytes 12.4 % (0.0-10.0); %Neutrophils 65.7 % (42.0-75.0); Hemoglobin 13.3 g/dL (14.0-18.0); Mean Corpuscular HGB CONC 33.7 g/dL (32.0-36.0); Mean Corpuscular Hemoglobin 32.6 pg (27.0-31.0); Mean Corpuscular Volume 96.7 fl (78.0-98.0); Mean Platelet Volume 9.6 fL (7.4-10.4); Platelet Count 169 10x3/uL (130-400); Red Blood Cell (RBC) Count 4.08 mill/uL (4.70-6.10); White Blood Cell (WBC) Count 11.4 10x3/uL (4.8-10.8)
[2022-11-18 04:30] LABS: Anion Gap 11 mmol/L (10-20); BUN (Urea Nitrogen) 18 mg/dL (8.4-25.7); Calc. Creatinine Clearance 0 mL/min (70-130); Calcium 8.3 mg/dL (7.8-10.44); Carbon Dioxide 21 mmol/L (22-29); Chloride 111 mmol/L (98-107); Estimated GFR 109; Glucose 87 mg/dL (70-105); Magnesium 2.1 mg/dL (1.6-2.6); Potassium 3.5 mmol/L (3.5-5.1); Sodium 139 mmol/L (136-145)
[2022-11-18] MEDS ORDERED: Aspirin Chewable 81 MG TAB ONE (08:20)
[2022-11-18] MEDS ORDERED: Famotidine 20 MG TAB ONE (08:20)
[2022-11-18] MEDS ORDERED: Multivitamin W/ Minerals 1 TAB ONE (08:20)
[2022-11-18] MEDS: TICAGRELOR 90 MG TABLET PO SCH (08:28)
[2022-11-18] MEDS: Famotidine 20 MG TAB PO SCH (08:28)
[2022-11-18] MEDS ORDERED: Nicotine 21 MG PATCH TD SCH (09:00)
[2022-11-18] MEDS ORDERED: Losartan 25 MG TAB PO SCH (09:00)
[2022-11-18] MEDS ORDERED: Multivitamin W/ Minerals 1 TAB PO SCH (09:00)
[2022-11-18] MEDS ORDERED: Aspirin 81 mg Enteric Coated Tablet PO SCH (09:00)
[2022-11-18] MEDS ORDERED: Sertraline 25 MG TAB PO SCH ×2 (09:00→21:00)
[2022-11-18 11:13] VITALS: BP 148/91; TEMP 98.2
== END 2022-11-18 15:24 | disposition home or self-care (01) ==
LOC: ERS 16:42 → ERHOLD 19:33
PROVIDERS: ADMIT Student in an Organized Health Care Education/Training Program; ATTEND Physician Assistant
DX: R55 Syncope and collapse (principal); I10 Essential (primary) hypertension; E78.5 Hyperlipidemia, unspecified; I25.10 Atherosclerotic heart disease of native coronary artery without angina pectoris; G40.909 Epilepsy, unspecified, not intractable, without status epilepticus; F17.200 Nicotine dependence, unspecified, uncomplicated; F12.10 Cannabis abuse, uncomplicated; Z79.02 Long term (current) use of antithrombotics/antiplatelets; Z79.82 Long term (current) use of aspirin; Z79.899 Other long term (current) drug therapy; Z95.5 Presence of coronary angioplasty implant and graft; Z98.84 Bariatric surgery status; Z20.822 Contact with and (suspected) exposure to COVID-19; V67.5XXA Driver of heavy transport vehicle injured in collision with fixed or stationary object in traffic accident, initial encounter
CPT/HCPCS: 36415; 70450; 71045; 72125; 80048; 80053; 80306; 80307; 81003; 82550; 83605; 83735; 83880; 84146; 84443; 84484; 85025; 87040; 87086; 93005; 95712; 95819; 95957; 96361; 96365; 96367; 96372; 96375; G0378; J0692; J1650; J2060; J3370

== ENCOUNTER 2022-12-21 11:20 | Emergency (ER) | payer BC ==
[~2022-12-21 11:20] MED LIST changes: -Iopamidol-370 76% 500 ML 1 ML ONE; +Iopamidol-370 76% 500 ML MDV (1 ML CHARGE) ONE
[2022-12-21 11:40] LABS: #Basophils 0.1 thou/uL (0.0-0.2); #Eosinphils 0.2 thou/uL (0.0-0.7); #Lymphocytes 2.9 thou/uL (1.20-3.40); #Monocytes 1.1 thou/uL (0.11-0.59); %Basophils 0.7 % (0.0-1.0); %Eosinophils 1.9 % (0.0-10.0); %Lymphocytes 25.5 % (21.0-51.0); %Monocytes 9.4 % (0.0-10.0); %Neutrophils 62.4 % (42.0-75.0); Hemoglobin 14.3 g/dL (14.0-18.0); Mean Corpuscular HGB CONC 34.1 g/dL (32.0-36.0); Mean Corpuscular Hemoglobin 32.3 pg (27.0-31.0); Mean Corpuscular Volume 94.7 fl (78.0-98.0); Mean Platelet Volume 9.4 fL (7.4-10.4); Platelet Count 208 10x3/uL (130-400); RBC Distribution Width 11.7 % (11.5-14.5); Red Blood Cell (RBC) Count 4.44 mill/uL (4.70-6.10); White Blood Cell (WBC) Count 11.2 10x3/uL (4.8-10.8)
[2022-12-21 12:02] LABS: ALT (SGPT) 25 U/L (8-55); AST (SGOT) 18 U/L (5-34); Albumin 4.3 g/dL (3.5-5.0); Alkaline Phosphatase 95 U/L (40-110); Anion Gap 13 mmol/L (10-20); BUN (Urea Nitrogen) 23 mg/dL (8.4-25.7); Bilirubin, Total 0.5 mg/dL (0.2-1.2); Calc. Creatinine Clearance 0 mL/min (70-130); Calcium 9.4 mg/dL (7.8-10.44); Carbon Dioxide 22 mmol/L (22-29); Chloride 108 mmol/L (98-107); Estimated GFR 105; Globulin 2.7 g/dL (2.4-3.5); Glucose 106 mg/dL (70-105); Lipase 19 U/L (8-78); Potassium 3.9 mmol/L (3.5-5.1); Sodium 139 mmol/L (136-145)
[2022-12-21 12:23] LABS: Bilirubin Negative (Negative); Blood, Urine Negative (Negative); Clarity Clear (Clear); Glucose, Urine (Dipstick) Normal (Negative); Ketone, Urine Negative (Negative); Leukocyte Negative Leu/uL (Negative); Nitrite Negative (Negative); Protein, Urine (Dipstick) Negative (Neg-Trace); Specific Gravity, Urine 1.015 (1.002-1.036); Urobilinogen Normal mg/dL (Less than 2); pH, Urine 6.5 (5.0-9.0)
[2022-12-21 16:03] LABS: Troponin I Less than 0.010 ng/mL (< 0.028)
== END 2022-12-21 19:49 | disposition short-term general hospital (02) ==
LOC: ERS 11:20
DX: R06.00 Dyspnea, unspecified (principal); R55 Syncope and collapse; D72.829 Elevated white blood cell count, unspecified; I10 Essential (primary) hypertension; I25.10 Atherosclerotic heart disease of native coronary artery without angina pectoris; E78.5 Hyperlipidemia, unspecified; Z87.891 Personal history of nicotine dependence; Z79.82 Long term (current) use of aspirin; Z79.899 Other long term (current) drug therapy
CPT/HCPCS: 36415; 36416; 70450; 71045; 71275; 80053; 81003; 82550; 83690; 84484; 85025; 85379; 93005; 94760; Q9967

== ENCOUNTER 2023-01-04 14:48 | Emergency (ER) | payer BC ==
[2023-01-04 15:33] LABS: #Basophils 0.1 thou/uL (0.0-0.2); #Eosinphils 0.3 thou/uL (0.0-0.7); #Monocytes 0.9 thou/uL (0.11-0.59); #Neutrophils 7.1 thou/uL (1.40-6.50); %Basophils 0.6 % (0.0-1.0); %Eosinophils 2.4 % (0.0-10.0); %Lymphocytes 26.1 % (21.0-51.0); %Monocytes 8.3 % (0.0-10.0); %Neutrophils 62.5 % (42.0-75.0); Hemoglobin 14.6 g/dL (14.0-18.0); Mean Corpuscular HGB CONC 34.6 g/dL (32.0-36.0); Mean Corpuscular Hemoglobin 33.2 pg (27.0-31.0); Mean Platelet Volume 9.8 fL (7.4-10.4); Platelet Count 195 10x3/uL (130-400); RBC Distribution Width 11.8 % (11.5-14.5); Red Blood Cell (RBC) Count 4.41 mill/uL (4.70-6.10); White Blood Cell (WBC) Count 11.3 10x3/uL (4.8-10.8)
[2023-01-04 15:51] LABS: ALT (SGPT) 22 U/L (8-55); AST (SGOT) 24 U/L (5-34); Albumin 4.4 g/dL (3.5-5.0); Alkaline Phosphatase 96 U/L (40-110); Anion Gap 21 mmol/L (10-20); BUN (Urea Nitrogen) 26 mg/dL (8.4-25.7); Bilirubin, Total 0.3 mg/dL (0.2-1.2); CK (CPK) 247 U/L (30-200); Calc. Creatinine Clearance 0 mL/min (70-130); Calcium 9.7 mg/dL (7.8-10.44); Carbon Dioxide 15 mmol/L (22-29); Chloride 109 mmol/L (98-107); Estimated GFR 100; Glucose 103 mg/dL (70-105); Protein, Total 7.4 g/dL (6.0-8.3); Sodium 141 mmol/L (136-145)
[2023-01-04] MEDS ORDERED: Acetaminophen 500 MG TAB ONE (19:52)
== END 2023-01-04 15:33 | disposition home or self-care (01) ==
LOC: ERS 14:48
DX: R53.1 Weakness (principal); D72.829 Elevated white blood cell count, unspecified; I10 Essential (primary) hypertension; I25.10 Atherosclerotic heart disease of native coronary artery without angina pectoris; E78.5 Hyperlipidemia, unspecified; Z79.82 Long term (current) use of aspirin; Z79.899 Other long term (current) drug therapy; Z87.891 Personal history of nicotine dependence
CPT/HCPCS: 36415; 36416; 80053; 82550; 83880; 84484; 85025; 93005

== ENCOUNTER → 2023-06-30 | Emergency (ER) | payer BC ==
[~2023-06-30] MED LIST changes: -Iopamidol-370 76% 500 ML MDV (1 ML CHARGE) ONE; +LORazepam 2 MG/ML SYR.(CARPUJECT) ONE; +Valproate Sodium 1,000 MG in Sodium Chloride 0.9% 100 ML IVPB SCH
[2023-06-30 17:09] LABS: #Neutrophils 9.5 thou/uL (1.40-6.50); %Basophils 0.3 % (0.0-1.0); %Eosinophils 0.2 % (0.0-10.0); %Lymphocytes 13.9 % (21.0-51.0); %Monocytes 8.1 % (0.0-10.0); Hematocrit 41.7 % (42.0-52.0); Hemoglobin 14.4 g/dL (14.0-18.0); Mean Corpuscular HGB CONC 34.5 g/dL (32.0-36.0); Mean Corpuscular Hemoglobin 30.7 pg (27.0-31.0); Mean Corpuscular Volume 88.9 fl (78.0-98.0); Mean Platelet Volume 11.4 fL (7.4-10.4); Platelet Count 244 10x3/uL (130-400); RBC Distribution Width 15.4 % (11.5-14.5); Red Blood Cell (RBC) Count 4.69 mill/uL (4.70-6.10); White Blood Cell (WBC) Count 12.3 10x3/uL (4.8-10.8)
[2023-06-30 17:23] LABS: Bacteria/HPF None Seen HPF (None Seen); Bilirubin Negative (Negative); Blood, Urine Negative (Negative); CAUTI Indications for Culture Alt mental st,lethar; Clarity Clear (Clear); Glucose, Urine (Dipstick) Normal (Negative); Ketone, Urine Trace mg/dL (Negative); Leukocyte Negative Leu/uL (Negative); Nitrite Negative (Negative); Protein, Urine (Dipstick) Negative (Neg-Trace); RBC/HPF 0-3 HPF (0-3); Specific Gravity, Urine 1.016 (1.002-1.036); Squamous Epithelial None Seen HPF (0-3); Urobilinogen Normal mg/dL (Less than 2); WBC/HPF 0-3 HPF (0-3)
[2023-06-30 17:26] LABS: Urine Culture Reflex No No
[2023-06-30 17:27] LABS: Amphetamine Not Detected (NotDetected); Barbiturates Screen Not Detected (NotDetected); Benzodiazepine Screen Not Detected (NotDetected); Cocaine Metabolite Screen Not Detected (NotDetected); Methadone Not Detected (NotDetected); Methamphetamine Not Detected (NotDetected); Opiate Screen Not Detected (NotDetected); Oxycodone Screen Not Detected (NotDetected); Phencyclidine (PCP) Not Detected (NotDetected); THC/Cannabinoid Screen Detected (NotDetected); Tricyclic Screen Not Detected (NotDetected)
[2023-06-30 17:29] LABS: Troponin I Less than 0.010 ng/mL (< 0.028)
[2023-06-30 17:30] LABS: ALT (SGPT) 21 U/L (8-55); AST (SGOT) 19 U/L (5-34); Albumin 4.6 g/dL (3.5-5.0); Alkaline Phosphatase 76 U/L (40-110); Anion Gap 17 mmol/L (10-20); BUN (Urea Nitrogen) 14 mg/dL (8.4-25.7); Bilirubin, Total 0.2 mg/dL (0.2-1.2); Calc. Creatinine Clearance 0 mL/min (70-130); Calcium 9.4 mg/dL (7.8-10.44); Carbon Dioxide 21 mmol/L (22-29); Chloride 103 mmol/L (98-107); Estimated GFR 105; Globulin 2.5 g/dL (2.4-3.5); Glucose 102 mg/dL (70-105); Potassium 3.5 mmol/L (3.5-5.1); Protein, Total 7.1 g/dL (6.0-8.3); Sodium 137 mmol/L (136-145)
[2023-06-30 17:34] LABS: Acetaminophen Less than 10 mcg/mL (10.0-30.0); Alcohol Less than 10.0 mg/dL (Less than 10); Salicylate Less than 8.0 mg/dL (15.0-30.0)
== END ==
LOC: ERS 16:07
DX: R56.9 Unspecified convulsions (principal); I10 Essential (primary) hypertension; I25.10 Atherosclerotic heart disease of native coronary artery without angina pectoris; E78.5 Hyperlipidemia, unspecified; Z87.891 Personal history of nicotine dependence; Z79.899 Other long term (current) drug therapy; Z79.82 Long term (current) use of aspirin
CPT/HCPCS: 36415; 70450; 71045; 80053; 80306; 80307; 81001; 84484; 85025; 93005; 96365; 96375; J2060; J3490